=== PATIENT | male | born 1960 | race African-American/Black ===

== ENCOUNTER 2023-05-05 19:56 | Inpatient (IN) | payer OTHER ==
[2023-05-05] MEDS: KETOROLAC TROMETHAMINE 15 MG/ML VIAL IVPUSH ONE (21:06)
[2023-05-05 21:25] LABS: BASO % 0.5 % (0-2.0); EOS % 1.8 % (0-4.5); HEMATOCRIT 28.1 % (35.4-49); HEMOGLOBIN 9.4 GM/dL (11.7-16.9); LYMPH % 19.4 % (8-40); MCH 29.9 pg (25.7-33.7); MCHC 33.3 g/dl (32.0-35.9); MEAN CELL VOLUME 89.7 fl (80-96); MEAN PLT VOLUME 8.8 fl (7.5-11.1); MONO % 9.8 % (3.8-10.2); NEUT % 68.5 % (42.8-82.8); PLATELET COUNT 283 10^3/uL (134-434); RBC 3.13 M/mm3 (4.00-5.60); RDW 16.3 % (11.9-15.9); WHITE BLOOD COUNT 9.3 K/mm3 (4.0-10.0)
[2023-05-05 21:48] LABS: POTASSIUM 4.8 mmol/L (3.5-5.1)
[2023-05-05 21:51] LABS: ALBUMIN 2.5 g/dl (3.4-5.0); BLOOD UREA NITROGEN 57.9 mg/dL (7-18); CALCIUM 7.7 mg/dL (8.5-10.1)
[2023-05-05 21:54] LABS: CREATININE 2.8 mg/dL (0.55-1.3)
[2023-05-05 21:57] LABS: BILIRUBIN,TOTAL 0.1 mg/dL (0.2-1); TOT PROT 6.4 g/dl (6.4-8.2)
[2023-05-06] MEDS: INSULIN ASPART SLIDING SCALE (NOVOLOG) 1 VIAL SQ SCH ×2 (03:14→17:18)
[2023-05-06] MEDS: IRON SUCROSE INJECTION 100 MG in SODIUM CHLORIDE 95 ML IVPB ONE (03:14)
[2023-05-06] MEDS ORDERED: methaDONE HCL 10 MG TABLET (FOR DETOX USE ONLY) PO SCH ×2 (08:40→10:00)
[2023-05-06 08:46] LABS: HEMATOCRIT 28.4 % (35.4-49); HEMOGLOBIN 9.2 GM/dL (11.7-16.9); MCH 29.5 pg (25.7-33.7); MCHC 32.4 g/dl (32.0-35.9); MEAN PLT VOLUME 8.9 fl (7.5-11.1); PLATELET COUNT 293 10^3/uL (134-434); RBC 3.12 M/mm3 (4.00-5.60); RDW 16.4 % (11.9-15.9); WHITE BLOOD COUNT 10.1 K/mm3 (4.0-10.0)
[2023-05-06 08:57] LABS: POTASSIUM 4.9 mmol/L (3.5-5.1)
[2023-05-06 08:59] LABS: ALBUMIN 2.2 g/dl (3.4-5.0); BLOOD UREA NITROGEN 62.5 mg/dL (7-18); CALCIUM 7.6 mg/dL (8.5-10.1); MAGNESIUM 1.6 mg/dL (1.8-2.4)
[2023-05-06 09:02] LABS: CREATININE 2.9 mg/dL (0.55-1.3); PHOSPHOROUS 4.4 mg/dL (2.5-4.9)
[2023-05-06 09:04] LABS: BILIRUBIN,TOTAL 0.1 mg/dL (0.2-1); TOT PROT 5.8 g/dl (6.4-8.2)
[2023-05-06] MEDS: CARVEDILOL 3.125 MG TABLET (FP) PO SCH (09:11)
[2023-05-06] MEDS: amLODIPine BESYLATE 10 MG TABLET (FP) PO SCH (09:11)
[2023-05-06] MEDS: APIXABAN 5 MG TABLET PO SCH ×2 (09:11→21:44)
[2023-05-06 09:27] LABS: EPI CELLS 13 /uL (0-25.1); HYALINE CASTS 0 /uL (0-3.1); URINE APPEARANCE CLEAR; URINE BACTERIA 13 /uL (0-1359); URINE BILIRUBIN NEGATIVE (NEGATIVE); URINE COLOR YELLOW; URINE GLUCOSE (UA) TRACE (NEGATIVE); URINE KETONE NEGATIVE (NEGATIVE); URINE LEUK ESTERASE NEGATIVE (NEGATIVE); URINE NITRITE NEGATIVE (NEGATIVE); URINE PROTEIN 4+ (NEGATIVE); URINE RBC 13 /uL (0-23.9); URINE UROBILINOGEN 0.2 mg/dL (0.2-1.0); URINE WBC 12 /uL (0-25.8)
[2023-05-06 09:37] LABS: PHENCYCLIDINE,URINE NEGATIVE (NEGATIVE); URINE BENZODIAZEPINES NEGATIVE (NEGATIVE)
[2023-05-06 09:38] LABS: OPIATES, URI NEGATIVE (NEGATIVE); URINE AMPHETAMINES NEGATIVE (NEGATIVE)
[2023-05-06 09:43] LABS: COCAINE, UR POSITIVE (NEGATIVE); METHADONE, UR POSITIVE (NEGATIVE); URINE BARBITURATES NEGATIVE (NEGATIVE)
[2023-05-06] MEDS ORDERED: INSULIN (NOVOLOG) ASPART 100 UNITS/ML 10ML VIAL ONE (12:09)
[2023-05-06 12:55] LABS: SYPHILIS W/ RPR CONF NON-REACTIVE (NONREACTIVE)
[2023-05-06 13:24] LABS: HIV INTERPRETATION NEGATIVE (NEGATIVE)
[2023-05-06] MEDS: hydrALAZINE HCL 50 MG TABLET (FP) PO SCH (13:56)
[2023-05-06] MEDS: MAGNESIUM 2GM/50ML STERILE WATER IVPB IVPB ONE (13:56)
[2023-05-06] MEDS ORDERED: hydrALAZINE HCL 50 MG TABLET (FP) PO SCH (14:00)
[2023-05-06] MEDS: ATORVASTATIN CA 40 MG TABLET (FP) PO SCH (21:44)
[2023-05-06] MEDS ORDERED: ATORVASTATIN CA 40 MG TABLET (FP) PO SCH (22:00)
[2023-05-07] MEDS: ACETAMINOPHEN 1000 MG/100 ML BAG IVPB ONE (04:09)
[2023-05-07 08:20] LABS: BASO % 0.2 % (0-2.0); EOS % 2.4 % (0-4.5); HEMATOCRIT 25.8 % (35.4-49); HEMOGLOBIN 8.5 GM/dL (11.7-16.9); LYMPH % 12.9 % (8-40); MEAN CELL VOLUME 91.1 fl (80-96); MEAN PLT VOLUME 8.8 fl (7.5-11.1); MONO % 9.7 % (3.8-10.2); NEUT % 74.8 % (42.8-82.8); PLATELET COUNT 282 10^3/uL (134-434); RBC 2.83 M/mm3 (4.00-5.60); RDW 16.6 % (11.9-15.9); WHITE BLOOD COUNT 9.5 K/mm3 (4.0-10.0)
[2023-05-07 08:21] LABS: POTASSIUM 5.5 mmol/L (3.5-5.1)
[2023-05-07 08:27] LABS: CALCIUM 7.6 mg/dL (8.5-10.1)
[2023-05-07 08:28] LABS: ALBUMIN 2.1 g/dl (3.4-5.0); BLOOD UREA NITROGEN 53.8 mg/dL (7-18)
[2023-05-07 08:30] LABS: CREATININE 2.8 mg/dL (0.55-1.3)
[2023-05-07 08:32] LABS: BILIRUBIN,TOTAL 0.2 mg/dL (0.2-1); TOT PROT 5.6 g/dl (6.4-8.2)
[2023-05-07] MEDS: amLODIPine BESYLATE 10 MG TABLET (FP) PO SCH (09:45)
[2023-05-07] MEDS ORDERED: INSULIN (NOVOLOG) ASPART 100 UNITS/ML 10ML VIAL ONE (12:02)
[2023-05-07] MEDS: SODIUM ZIRCONIUM CYCLOSILICATE (LOKELMA) 5 GM PACKET PO SCH (16:07)
[2023-05-07] MEDS: ACETAMINOPHEN 325 MG TABLET (FP) PO PRN (19:04)
[2023-05-07] MEDS: APIXABAN 2.5 MG TABLET PO SCH (22:04)
[2023-05-08] MEDS: ACETAMINOPHEN 325 MG TABLET (FP) PO PRN (00:49)
[2023-05-08] MEDS ORDERED: INSULIN (NOVOLOG) ASPART 100 UNITS/ML 10ML VIAL ONE ×2 (05:11→12:06)
[2023-05-08 07:37] LABS: BASO % 0.4 % (0-2.0); EOS % 2.5 % (0-4.5); HEMATOCRIT 25.4 % (35.4-49); HEMOGLOBIN 8.3 GM/dL (11.7-16.9); LYMPH % 15.8 % (8-40); MCH 29.5 pg (25.7-33.7); MCHC 32.5 g/dl (32.0-35.9); MEAN CELL VOLUME 90.9 fl (80-96); MEAN PLT VOLUME 8.7 fl (7.5-11.1); MONO % 10.9 % (3.8-10.2); NEUT % 70.4 % (42.8-82.8); PLATELET COUNT 286 10^3/uL (134-434); RDW 16.9 % (11.9-15.9); WHITE BLOOD COUNT 9.6 K/mm3 (4.0-10.0)
[2023-05-08 07:58] LABS: POTASSIUM 5.6 mmol/L (3.5-5.1)
[2023-05-08 08:11] LABS: BLOOD UREA NITROGEN 54.2 mg/dL (7-18)
[2023-05-08 08:15] LABS: CREATININE 2.6 mg/dL (0.55-1.3)
[2023-05-08 08:16] LABS: BILIRUBIN,TOTAL 0.2 mg/dL (0.2-1); TOT PROT 5.5 g/dl (6.4-8.2)
[2023-05-08] MEDS: SODIUM ZIRCONIUM CYCLOSILICATE (LOKELMA) 5 GM PACKET PO SCH (09:37)
[2023-05-08] MEDS: hydrALAZINE HCL 50 MG TABLET (FP) PO SCH (14:54)
[2023-05-08 23:59] VITALS: BMI 21.2
[2023-05-09 06:29] LABS: HEMATOCRIT 24.4 % (35.4-49); HEMOGLOBIN 8.1 GM/dL (11.7-16.9); MCH 30.1 pg (25.7-33.7); MCHC 33.1 g/dl (32.0-35.9); MEAN CELL VOLUME 91.1 fl (80-96); MEAN PLT VOLUME 8.3 fl (7.5-11.1); PLATELET COUNT 282 10^3/uL (134-434); RBC 2.68 M/mm3 (4.00-5.60); RDW 16.7 % (11.9-15.9); WHITE BLOOD COUNT 9.4 K/mm3 (4.0-10.0)
[2023-05-09 06:47] LABS: POTASSIUM 5.2 mmol/L (3.5-5.1)
[2023-05-09 06:51] LABS: MAGNESIUM 1.3 mg/dL (1.8-2.4)
[2023-05-09 06:53] LABS: BLOOD UREA NITROGEN 51.8 mg/dL (7-18)
[2023-05-09 06:54] LABS: CREATININE 2.7 mg/dL (0.55-1.3); PHOSPHOROUS 3.8 mg/dL (2.5-4.9)
[2023-05-09 06:55] LABS: BILIRUBIN,TOTAL 0.1 mg/dL (0.2-1); TOT PROT 5.5 g/dl (6.4-8.2)
[2023-05-09] MEDS: amLODIPine BESYLATE 5 MG TABLET (FP) PO SCH (09:53)
[2023-05-09] MEDS ORDERED: INSULIN (NOVOLOG) ASPART 100 UNITS/ML 10ML VIAL ONE ×2 (12:02→16:24)
[2023-05-09] MEDS: MAGNESIUM 2GM/50ML STERILE WATER IVPB IVPB ONE (13:55)
[2023-05-09] MEDS: GABAPENTIN 300 MG CAPSULE PO ONE (18:26)
[2023-05-09] MEDS: GABAPENTIN 100 MG CAPSULE PO ONE (23:27)
[2023-05-10] MEDS: MELATONIN 1 MG TABLET PO PRN (03:07)
[2023-05-10] MEDS ORDERED: INSULIN (NOVOLOG MIX 70/30) 100 UNITS/ML MDV SQ ONE (06:18)
[2023-05-10] MEDS ORDERED: INSULIN (NOVOLOG) ASPART 100 UNITS/ML 10ML VIAL ONE (06:19)
[2023-05-10] MEDS: GABAPENTIN 300 MG CAPSULE PO SCH (10:40)
[2023-05-10 11:54] LABS: POTASSIUM 5.2 mmol/L (3.5-5.1)
[2023-05-10 12:22] LABS: CALCIUM 8.6 mg/dL (8.5-10.1)
[2023-05-10 12:23] LABS: BLOOD UREA NITROGEN 48.5 mg/dL (7-18)
[2023-05-10 12:25] LABS: CREATININE 2.6 mg/dL (0.55-1.3)
[2023-05-10 14:46] VITALS: BP 154/92; PULSE 88; RESP 18; TEMP 98.6
[2023-05-10 16:08] LABS: TOTAL PROTEIN, URINE 316.8 mg/dL (Not Estab.)
== END 2023-05-10 16:32 | disposition home health service (06) | DRG 203 ==
LOC: JER 19:56 → JERBED 23:12 → J8W 05-06 02:10 → J4W 05-06 12:58 → OBSVTOIN 05-08 09:15
PROVIDERS: ADMIT Internal Medicine; ATTEND Internal Medicine
DX: R07.89 Other chest pain (principal); E43 Unspecified severe protein-calorie malnutrition; N18.4 Chronic kidney disease, stage 4 (severe); E10.22 Type 1 diabetes mellitus with diabetic chronic kidney disease; F11.20 Opioid dependence, uncomplicated; I13.0 Hypertensive heart and chronic kidney disease with heart failure and stage 1 through stage 4 chronic kidney disease, or unspecified chronic kidney disease; I50.30 Unspecified diastolic (congestive) heart failure; E10.40 Type 1 diabetes mellitus with diabetic neuropathy, unspecified; M79.606 Pain in leg, unspecified; R26.2 Difficulty in walking, not elsewhere classified; R63.4 Abnormal weight loss; E78.5 Hyperlipidemia, unspecified; Z68.21 Body mass index [BMI] 21.0-21.9, adult
CPT/HCPCS: 36415; 76775-TC; 80048; 80053; 80307; 81003; 82043; 82550; 82553; 82570; 82728; 82962; 83036; 83540; 83550; 83735; 83880; 84100; 84156; 84157; 84484; 85025; 85027; 85045; 86704; 86780; 86803; 87389; 87517; 87635; 93005; 93010; 93306-TC; 97116-GP; 99285-25; G0378; J0131; J1756